=== PATIENT | female | born 1990 | race Caucasian/White ===

== ENCOUNTER 2022-04-20 08:26 | Outpatient (CLI) | payer OTHER, SELFPAY ==
--- NOTE | 2022-04-20 08:45 | MR_ITS ---
WS: [id number] MRI LUMBAR SPINE NONCONTRAST HISTORY: M54.16 - Radiculopathy, lumbar region, low back and lower extremity pain. Chronic and progre ssive. COMPARISON: None available. TECHNIQUE: Sagittal and axial multisequence imaging is submitted. There are 5 nonrib-bearing lumbar vertebral bodies. There may only be 11th thoracic vertebral bodies. Less than 2 mm retrolisthesis of L5. No fractures or marrow edema. Mild disc desiccation without loss of height at L3-4 and L4-5. No facet joint arthritis or fluid. Conus terminates normally at L1-2 disc level. L1-L2: Normal. L2-L3: Mild RIGHT facet joint arthritis. L3-L4: Mild annular disc bulge with a moderate sized moderate to large LEFT paracentral and subarticu lar disc protrusion. Disc protrusion extends into the foramen. There is mass effect and posterior dis placement of the LEFT thecal sac and the L4 nerve root. Protrusion extends caudad from the L3-4 disc by 11 mm. Very mild LEFT foraminal narrowing. Mild central stenosis. L4-L5: Mild disc bulging and minimal osteophytic ridging with facet and ligamentum flavum arthritis. No significant stenosis. Seen best on the sagittal image is a small disc protrusion in the RIGHT fora men. Small annular fissure within the disc protrusion in the central disc. L5-S1: Mild annular disc bulging with a central small disc protrusion. There is mild contact on the S 1 nerve roots bilaterally without displacement. Mild bilateral foraminal stenosis. Retroperitoneum is negative. MR/MR lumbar spine wo con* [id number] IMPRESSION: 1. Moderate-sized LEFT paracentral, subarticular recess and foraminal disc ext rusion at L3-4. Disc extrusion extends 11 mm caudad to the disc level. Signific ant contact and displacement of the LEFT traversing L4 nerve root. 2. Mild central stenosis at L3-4. 3. Small RIGHT foraminal disc protrusion at L4-5. 4. Small central disc protrusion at L5-S1. Mild disc contact on the S1 nerve r oots bilaterally. Mild bilateral foraminal stenosis.
== END 2022-04-20 08:27 | disposition home or self-care (01) ==
PROVIDERS: PCP Nurse Practitioner; Visit Provider Anesthesiology Pain Medicine
DX: M54.16 Radiculopathy, lumbar region (principal)
CPT/HCPCS: 72148